=== PATIENT | female | born 1940 | race Caucasian/White ===

== ENCOUNTER 2019-08-16 06:13 | Observation (INO) | payer OTHER, BC ==
[~2019-08-16] VITALS: Ht 160 cm; Wt 97.8 kg
[2019-08-16] VITALS (12 sets, daily range): BP systolic 106–138; BP diastolic 65–87
[2019-08-16 07:15] LABS: HEMATOCRIT 41.1 % (37.0-47.0); HEMOGLOBIN 13.3 gm/dL (12.0-15.0); MCHC 32.4 g/dL (28.0-37.0); MCV 83.4 fL (80.0-100.0); RBC 4.93 mil/uL (4.20-5.00); RDW 14.4 % (10.5-14.5); WBC 6.7 thou/uL (4.0-11.0)
[2019-08-16 07:23] LABS: CALCIUM 9.3 mg/dL (8.5-10.1); CREATININE 0.8 mg/dL (0.6-1.0)
[2019-08-16] MEDS ORDERED: XARELTO20 MG PO (07:34)
[2019-08-16] MEDS ORDERED: METOPROLOL SUCC50 MG PO (07:36)
[2019-08-16] MEDS ORDERED: TOPROL XL50 MG PO (07:37)
[2019-08-16] MEDS ORDERED: FUROSEMIDE 40 M40 MG PO (07:37)
[2019-08-16] MEDS ORDERED: TOUJEO MAX300 UNIT/1 SUBQ (07:39)
[2019-08-16] MEDS ORDERED: HUMALOG100 UNIT/1 SUBQ (07:39)
[2019-08-16] MEDS ORDERED: LEVO-T25 MCG PO (07:40)
[2019-08-16] MEDS ORDERED: ASA81BEC PO (07:42)
[2019-08-16] MEDS ORDERED: MAGNESIUM400 M1 PO (07:43)
[2019-08-16] MEDS ORDERED: KLOR-CON 10 ER10 MEQ PO (07:43)
--- NOTE | 2019-08-16 12:53 | 2DMMODE ---
[facility] [place] [address] 2 D/M-MODE ECHOCARDIOGRAM Name: FRANCE MCCRARY Room #: 211-P [facility] IN .R.#: [id number] Admission: 08/16/19 Attend Phys: Carlos Hinson, Discharge: Date of : 40 Report #: [id number] THIS REPORT FOR: //name// APPROVED REPORT Study performed: 08/16/2019 10:38:32 EXAM: Comprehensive 2D, Doppler, and color-flow Echocardiogram Patient Location: Bedside Room #: 211 Status: routine BSA: 2.05 HR: 92 bpm BP: 133/82 mmHg Rhythm: Atrial Fibrillation Other Information Study Quality: Adequate Indications Congestive Heart Failure Atrial Fibrillation Dyspnea 2D Dimensions RVDd: 40.09 mm IVSd: 8.56 (7-11mm) LVOT Diam: 20.02 (18-24mm) LVDd: 49.85 mm PWd: 8.85 (7-11mm) Ascending Ao: 27.99 (22-36mm) LVDs: 42.91 (25-40mm) Aortic Root: 28.89 mm IVC: 20.00 mm Volumes Left Atrial Volume (Systole) Single Plane 4CH: 63.62 mL Single Plane 2CH: 41.45 mL LA ESV Index: 35.00 mL/m2 Aortic Valve AoV Peak Kevin.: 1.38 m/s AO Peak Gr.: 7.60 mmHg LVOT Max P.01 mmHg LVOT Max V: 0.87 m/s KIRAN Vmax: 1.98 cm2 Pulmonary Valve PV Peak Kevin.: 0.69 m/s PV Peak Gr.: 1.94 mmHg [facility] [address] [place] [address] 2 D/M-MODE ECHOCARDIOGRAM Name: FRANCE MCCRARY Room #: 211-P [facility] IN [facility]#: [id number] Admission: 08/16/19 Attend Phys: Carlos Hinson, Discharge: Date of : 40 Report #: [id number] Tricuspid Valve TR Peak Kevin.: 2.52 m/s TR Peak Gr.: 25.37 mmHg PA Pressure: 35.00 mmHg Left Ventricle The left ventricle is normal size. There is global hypokinesis of the left ventricle. There is normal left ventricular wall thickness. Left ventricular systolic function is mild to moderately decreased. LVEF is 40%. This study is not technically sufficient to allow evaluation of the LV diastolic function due to atrial fibrillation. Right Ventricle The right ventricle is normal size. The right ventricular systolic function is normal. Atria Left atrium is dilated. Right atrium is dilated. Aortic Valve The aortic valve is normal in structure. No aortic regurgitation is present. There is no aortic valvular stenosis. Mitral Valve The mitral valve is normal in structure. Mild mitral regurgitation. No evidence of mitral valve stenosis. Tricuspid Valve The tricuspid valve is normal in structure. There is mild tricuspid regurgitation. Estimated PAP 35 mmHg. There is mild pulmonary hypertension. Pulmonic Valve The pulmonary valve is normal in structure. There is no pulmonic valvular regurgitation. Great Vessels The aortic root is normal in size. IVC is dilated and collapses <50% with inspiration. Pericardium There is no pericardial effusion. <Conclusion> The left ventricle is normal size. [facility] [address] [place] [address] 2 D/M-MODE ECHOCARDIOGRAM Name: HERMANNFRANCE Room #: 211-[facility] IN .R.#: [id number] Admission: 08/16/19 Attend Phys: Carlos Hinson, Discharge: Date of : 40 Report #: [id number] Left ventricular systolic function is mild to moderately decreased. There is global hypokinesis of the left ventricle. LVEF is 40%. The right ventricle is normal size. Left atrium is dilated. Right atrium is dilated. The aortic valve is normal in structure. Mild mitral regurgitation. There is mild tricuspid regurgitation. Estimated PAP 35 mmHg. There is mild pulmonary hypertension. The aortic root is normal in size. There is no pericardial effusion. <ELECTRONICALLY SIGNED> By: Carlos Hinson MD, [facility] 08/16/19 1252 1252 1252 Carlos Hinson MD, FACC /INF
--- NOTE | 2019-08-16 16:32 | NUR ---
PT CARE ASSUMED APPROX 1020 FROM PROVIDER RELATIONS COORDINATOR. ASSESSMENTS CHARTED. PT DENIES PAIN AND SOA. VSS. BS ONLY SLIGHTLY ELEVATED. MANAGED WITH SSI. FAMILY AT BEDSIDE. RIGHT GROIN POST CATH SITE C/D/I. FREE FROM HEMATOMA AT THIS TIME. PT COMPLIED WITH BEDREST. GAIT ASSESSED AFTER BEDREST. PT UP WITH STEADY GAIT. PT MANAGING URINARY CATHETER WITHOUT ISSUE WHEN AMBULATING. PT TOLERATING POC. PT AND FAMILY DENY QUESTIONS AND CONCERNS REGARDING POC. NO DISTRESS NOTED.
[2019-08-17 04:10] VITALS: BP 123/66
[2019-08-17 04:11] LABS: PROTIME 12.9 Seconds (9.3-11.4)
[2019-08-17 04:12] LABS: APTT 36.1 Seconds (24.5-32.8); CALCIUM 9.2 mg/dL (8.5-10.1); CREATININE 0.9 mg/dL (0.6-1.0); INR 1.2; POTASSIUM 3.5 mmol/L (3.5-5.1)
--- NOTE | 2019-08-17 04:34 | NUR ---
SHIFT NOTE: PATIENT ALERT AND ORIENTED AND ABLE TO COMMUNICATE NEEDS. RESTING WITH NO ACUTE DISTRESS. DENIES PAIN OR DISCOMFORT. VITAL SIGN AND OTHER SHIFT ASSESMENT PER THE CHART. RIGHT GROIN SITE ACCESS ASSESSMENT THROUGHOUT THE SHIFT WITH NO NOTED BLEEDING OR HEMATOMA. PALPABLE PEDAL PULSES AND EXTREMITY WARM TO THE TOUCH. DENIES COMPLAINT OR CONCERN. HOURLY ROUNDING. CALL LIGHT AND PERSONAL ITEMS WITHIN REACH. WILL CONTINUE WITH CURRENT POC AND TO MONITOR.
[2019-08-17 04:37] LABS: HEMATOCRIT 41.5 % (37.0-47.0); HEMOGLOBIN 13.3 gm/dL (12.0-15.0); MCH 26.9 pg (26.0-34.0); MCHC 32.1 g/dL (28.0-37.0); MCV 83.9 fL (80.0-100.0); RBC 4.94 mil/uL (4.20-5.00); RDW 14.2 % (10.5-14.5); WBC 6.3 thou/uL (4.0-11.0)
[2019-08-17 07:03] VITALS: BP 137/77
[2019-08-17] MEDS ORDERED: TOPROL XL50 MG PO (07:54)
[2019-08-17] MEDS ORDERED: DEMADEX20 MG PO (07:54)
[2019-08-17] MEDS ORDERED: PRINIVIL5 MG PO (07:54)
[2019-08-17 10:12] VITALS: BP 137/77
--- NOTE | 2019-08-17 11:39 | NUR ---
ASSUMED CARE 0700. A/OX4, DENIES PAIN, FROM HOME. PROGRESSED TOWARDS GOALS. DC HOME WITH SELF CARE. EDUCATION GIVEN REGARDING NEW MEDICATIONS, FLUID RESTRICTIONS TO 64OZ, LOW SODIUM DIET, DAILY WTE EDUCATIONS, AND CARDIAC REHAB NURSE REVIEWED EDUCATIONS WITH PATIENT. HOME MED RETURNED TO PATIENT. DISCHARGED HOME WITH DAUGHTER WHO PROVIDED TRANSPORTATION.
--- NOTE | 2019-08-17 12:21 | EKG ---
[address] [address] ELECTROCARDIOGRAM REPORT Name: FRANCE MCCRARY Room #: 211-P [facility]#: [id number] Admission: 08/16/19 Attend Phys: Carlos Hinson MD, Discharge: 08/17/19 Date of : 40 Report #: [id number] THIS REPORT FOR: //name// [facility] Test Date: 2019-08-16 Test Time: 07:14:36 Pat Name: FRANCE MCCRARY Department: Room: [facility] Gender: F Professor Of Architecture: Troy REINA : 1940 Requested By: Carlos Hinson Order Number: [id number] MD: Chad Cooper Measurements Intervals [place] Rate: 97 P: [place]: QRS: 59 QRSD: 92 T: 31 QT: 383 QTc: 487 Interpretive Statements Atrial fibrillation Low voltage, extremity leads Compared to ECG 07/09/2008 08:52:28 Sinus rhythm no longer present Electronically Signed On 08-17-2019 12:20:44 CABLE SWAGER by Chad Cooper [email or web address] <ELECTRONICALLY SIGNED> By: Chad Cooper MD 08/17/19 1220 3 3 Chad Cooper MD /RUBEN
--- NOTE | 2019-08-17 12:29 | EKG ---
[address] [address] ELECTROCARDIOGRAM REPORT Name: FRANCE MCCRARY Room #: 211-[facility] MSamiRSami#: [id number] Admission: 08/16/19 Attend Phys: Cralos Hinson MD, Discharge: 08/17/19 Date of : 40 Report #: [id number] THIS REPORT FOR: //name// [facility] Test Date: 2019-08-17 Test Time: 07:56:27 Pat Name: FRANCE MCCRARY Department: Room: 211 Gender: F Press Service Reader: RT : 1940 Requested By: Carlos Hinson Order Number: [id number] MD: Chad Cooper Measurements Intervals [place] Rate: 80 P: [place]: QRS: 32 QRSD: 99 T: 18 QT: 405 QTc: 468 Interpretive Statements Atrial fibrillation Low voltage, extremity leads Abnormal R-wave progression, late transition Baseline wander in lead(s) II,III,aVF Compared to ECG 07/09/2008 08:52:28 Sinus rhythm no longer present Electronically Signed On 08-17-2019 12:28:54 MECHANICAL TEST TECHNICIAN by Chad Cooper [email or web address] <ELECTRONICALLY SIGNED> By: Chad Cooper MD 08/17/19 1228 0756 0756 Chad Cooper MD /EPI
--- NOTE | 2019-08-21 13:57 | CATHLAB ---
[facility] [address] [place] [address] INVASIVE PROCEDURE REPORT Name: HERMANNFRANCE Room #: 211-P [facility] IN .#: [id number] Admission: 08/16/19 Attend Phys: Carlos Hinson, Discharge: 08/17/19 Date of : 40 Report #: [id number] THIS REPORT FOR: //name// APPROVED REPORT Study performed: 08/16/2019 08:09:27 Patient Details Patient Status: Out-Patient Room #: The patient is a 79 year-old female Event Personnel Carlos Hinson Customs [employer] Border Protection Inspector, Arianna Julian RTR, BI CONSULTANT Monitor, Herminio Hoskins RTR Monitor, Fritz Melendrez RN, Denae Knowles RN RN, Jenna Wise RTR Scrub, Ale Wang RTR Scrub Procedures Performed Art Access - R femoral artery* Adriel Access - R femoral vein Right and Left Heart Cath w/or w/o Coronarie [id number] [facility] Aortogram Abdominal Peripheral Angio [id number] 87023 Initial Mod Sed Same Phys/QHP Gr5y 197334 40308 Mod Sed Same Phys/QHP Ea [id number] Hemostasis w/ Mynx Hemostasis with Manual pressure Indication Positive stress test, Chest pain Procedure Narrative The Right Groin^ was infiltrated with 1% Lidocaine subcutaneous anesthesia. A PINNACLE 6FR Sheath #[id number] sheath was inserted into the RFA. Coronary angiography was performed using coronary diagnostic catheters. The right coronary system was accessed and visualized with a JR4 catheter. The left coronary system was accessed and visualized with a JL4 catheter. The left ventricle was accessed and visualized with a pigtail catheter. Left ventriculogram was performed in 30 degree projection. An aortogram of the abdominal aorta was performed. Pre-demployment femoral angiogram was performed . Closure device was deployed with a 6 Fr MYNXGRIP 6/7F #[id number]. Hemostasis was obtained with manual pressure following sheath removal without any complications. The patient tolerated the procedure well and there were no complications associated with the procedure. There was no hematoma. Intraoperative Conscious Sedation Sedation start time: 08:35 Case end Time: [facility] [address] [place] [address] INVASIVE PROCEDURE REPORT Name: FRANCE MCCRARY Room #: 211-P [facility]#: [id number] Admission: 08/16/19 Attend Phys: Carlos Hinson, Discharge: 08/17/19 Date of : 40 Report #: [id number] 09:18 Fentanyl 50 mcg Versed 1 mg Fluoro Time: 3.28 minutes Dose: DAP 5291.40 cGycm2 547 mGy Contrast Type and Amount: Omnipaque 350-130ml Hemodynamics The right atrial mean pressure is 22 mmHg. The right ventricular pressure is 53/20 mmHg. The pulmonary artery pressure is 52/30 mmHg with a mean of 40 mmHg. The mean pulmonary capillary wedge pressure is 25 mmHg. The aortic pressure is 126/72 mmHg with a mean of 90 mmHg. The left ventricular pressure is 161/11 mmHg with a mean of mmHg. The left ventricular end diastolic pressure is 20 mmHg. The cardiac output using thermo method is 4.30 L/min. The cardiac index using thermo method is 2.09 L/min/m2. Conclusion #1 normal left ventricular size and subtle inferior wall leg EF 55% #2 abdominal aortogram revealing wide patency without evidence of aneurysm. Renal arteries are widely patent bilaterally #3 left main moderate size no occlusive disease giving rise to LAD and circumflex #4 LAD extends to the apex there is moderate disease in the mid distal vessel somewhat attenuated no indication for intervention #5 circumflex OM nondominant with mild irregularity large OM and moderate size distal circumflex. For 6 large dominant right coronary artery there is moderate dampening of the catheter. Multiple visualization of the ostial RCA. 60-70% ostial narrowing. With otherwise a large preserved dominant vessel. Recommendations and plan: We'll arrange close follow-up will consider pharmacologic stress testing for correlation to rule out significant ischemia in the inferior wal/ll/RCA distribution. <ELECTRONICALLY SIGNED> By: Carlos Hinson MD, FACC 08/21/19 1356 1356 1356 Carlos Hinson MD, FACC /INF
== END 2019-08-17 11:44 | disposition home or self-care (01) ==
LOC: CATH 06:13 → TBACV 09:29 → 2N 10:35 → CATH 12:03 → ENTRNSPT 08-17 11:22 → EDTRNSPTSTS 08-17 11:41 → 2N 08-17 11:44
PROVIDERS: ADMIT Internal Medicine Cardiovascular Disease
DX: I25.10 Atherosclerotic heart disease of native coronary artery without angina pectoris (principal); I11.0 Hypertensive heart disease with heart failure; I50.43 Acute on chronic combined systolic (congestive) and diastolic (congestive) heart failure; I48.91 Unspecified atrial fibrillation; E78.5 Hyperlipidemia, unspecified; E03.9 Hypothyroidism, unspecified; M19.90 Unspecified osteoarthritis, unspecified site; E11.9 Type 2 diabetes mellitus without complications; E66.9 Obesity, unspecified; Z68.35 Body mass index [BMI] 35.0-35.9, adult; Z79.82 Long term (current) use of aspirin; Z79.899 Other long term (current) drug therapy; Z87.891 Personal history of nicotine dependence; Z79.4 Long term (current) use of insulin

== ENCOUNTER → 2020-03-19 | Outpatient (CLI) | payer OTHER ==
[~2020-03-19] MED LIST: ASA81BEC PO; DEMADEX20 MG PO; FUROSEMIDE 40 M40 MG PO; HUMALOG100 UNIT/1 SUBQ; KLOR-CON 10 ER10 MEQ PO; LEVO-T25 MCG PO; MAGNESIUM400 M1 PO; METOPROLOL SUCC50 MG PO; PRINIVIL5 MG PO; TOPROL XL50 MG PO; TOUJEO MAX300 UNIT/1 SUBQ; XARELTO20 MG PO
== END ==
LOC: SJCVCIMAG 09:09
PROVIDERS: ATTEND Internal Medicine Cardiovascular Disease
DX: R94.31 Abnormal electrocardiogram [ECG] [EKG] (principal); I08.1 Rheumatic disorders of both mitral and tricuspid valves; I11.0 Hypertensive heart disease with heart failure; I50.9 Heart failure, unspecified; I25.10 Atherosclerotic heart disease of native coronary artery without angina pectoris; E11.9 Type 2 diabetes mellitus without complications; I48.21 Permanent atrial fibrillation; D68.59 Other primary thrombophilia; E78.00 Pure hypercholesterolemia, unspecified; Z78.9 Other specified health status; Z79.4 Long term (current) use of insulin

== ENCOUNTER → 2020-12-17 | Outpatient (CLI) | payer OTHER | LOC: SJCVC 10:42 | PROVIDERS: ATTEND Internal Medicine Cardiovascular Disease | DX: I25.10 Atherosclerotic heart disease of native coronary artery without angina pectoris (principal); I10 Essential (primary) hypertension; E78.00 Pure hypercholesterolemia, unspecified; I48.91 Unspecified atrial fibrillation; E11.9 Type 2 diabetes mellitus without complications; D68.59 Other primary thrombophilia; I50.9 Heart failure, unspecified; Z79.4 Long term (current) use of insulin; Z79.899 Other long term (current) drug therapy; Z82.49 Family history of ischemic heart disease and other diseases of the circulatory system ==

== ENCOUNTER → 2021-07-23 | Outpatient (CLI) | payer OTHER | LOC: SJCVC 11:01 | PROVIDERS: ATTEND Internal Medicine Cardiovascular Disease | DX: I48.91 Unspecified atrial fibrillation (principal); R94.31 Abnormal electrocardiogram [ECG] [EKG]; I10 Essential (primary) hypertension; E78.00 Pure hypercholesterolemia, unspecified; E11.9 Type 2 diabetes mellitus without complications; D68.59 Other primary thrombophilia; I42.8 Other cardiomyopathies; I25.10 Atherosclerotic heart disease of native coronary artery without angina pectoris; Z79.4 Long term (current) use of insulin; Z78.9 Other specified health status; Z86.79 Personal history of other diseases of the circulatory system; Z79.899 Other long term (current) drug therapy; Z88.8 Allergy status to other drugs, medicaments and biological substances; Z88.2 Allergy status to sulfonamides; Z86.16 Personal history of COVID-19 ==